=== PATIENT | female | born 1995 | race Caucasian/White ===

== ENCOUNTER 2016-11-19 00:45 | Emergency (ER) | payer SELFPAY ==
[~2016-11-19] VITALS: Ht 172.7 cm; Wt 61.2 kg
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
--- NOTE | 2016-11-19 01:02 | NUR ---
Dr. Don at bedside for further eval.
[2016-11-19] MEDS ORDERED: IV NS 0.9% 1,000 ML ONE (01:06)
[2016-11-19] MEDS ORDERED: IV SET PRIMARY 1 EA INFUS.SET MC ONE (01:06)
[2016-11-19] MEDS ORDERED: ONDANSETRON HCL/PF 4 MG/2 ML VIAL ONE (01:06)
[2016-11-19] MEDS ORDERED: MORPHINE SULFATE INJ 4 MG/ML DISP.SYRIN ONE (01:06)
--- NOTE | 2016-11-19 01:08 | NUR ---
[employer] at bedside talking w/ pt.
--- NOTE | 2016-11-19 01:12 | NUR ---
ambulatory w/ steady gait to restroom. Urine obtained & sent. IVHL started, labs drawn & sent. medicated as ordered for continued RUQ abd pain w/ rt knee pain. On continuous monitoring.
[2016-11-19 01:26] LABS: BASOPHILS % (AUTO) 0.3 % (0.0-2.0); EOSINOPHILS # (AUTO) 0.2 /CMM (0.0-0.7); EOSINOPHILS % (AUTO) 1.4 % (0.0-6.0); HEMATOCRIT 38 % (33-45); HEMOGLOBIN 12.7 g/dL (11.5-14.8); LYMPHOCYTES # (AUTO) 2.9 /CMM (0.8-4.8); LYMPHOCYTES % (AUTO) 21.7 % (20.0-44.0); MEAN CORPUSCULAR HEMOGLOBIN 30 PG (26.0-33.0); MEAN CORPUSCULAR HGB CONC 34 g/dl (31.0-36.0); MEAN CORPUSCULAR VOLUME 88 fL (82-100); MONOCYTES # (AUTO) 0.7 /CMM (0.1-1.30); MONOCYTES % (AUTO) 5.3 % (2.0-12.0); NEUTROPHILS # (AUTO) 9.7 /CMM (1.8-8.9); NEUTROPHILS % (AUTO) 71.3 % (43.0-81.0); PLATELET COUNT (AUTO) 371 /CMM (150-450); RDW COEFFICIENT OF VARIATION 12.7 (11.5-15.0); WHITE BLOOD COUNT (AUTO) 13.6 K/uL (4.3-11.0)
[2016-11-19 01:28] LABS: BILIRUBIN,URINE NEGATIVE (NEGATIVE); BLOOD, URINE TRACE Ery/uL (NEGATIVE); COLOR,URINE YELLOW (YELLOW); KETONES,URINE NEGATIVE (NEGATIVE); LEUKOCYTE ESTERASE ,URINE NEGATIVE (NEGATIVE); NITRITE, URINE NEGATIVE (NEGATIVE); PROTEIN,URINE NEGATIVE (NEGATIVE); UGLUCOSE NEGATIVE (NEGATIVE); UROBILINOGEN,URINE 0.2 EU/dL (0.2)
[2016-11-19] MEDS ORDERED: IV NS 0.9% 1,000 ML BAG IV ONE (01:30)
[2016-11-19] MEDS ORDERED: MORPHINE SULFATE INJ 2 MG/ML DISP.SYRIN IV ONE ×2 (01:30→03:00)
[2016-11-19] MEDS ORDERED: ONDANSETRON HCL/PF 4 MG/2 ML VIAL IVP ONE (01:30)
[2016-11-19 01:31] LABS: APPEARANCE,URINE CLEAR (CLEAR)
[2016-11-19 01:37] LABS: ADD URINE CULTURE NO; BACTERIA,URINE None seen /HPF (None Seen); SQUAMOUS EPITHELIAL CELL,UR Moderate /HPF (None Seen); WBC,URINE 0-2 /HPF (0-3)
[2016-11-19 01:37] LABS: CALCIUM, SERUM 9.3 mg/dL (8.5-10.1); CREATININE 0.9 mg/dL (0.6-1.3); POTASSIUM 3.7 mmol/L (3.5-5.1)
[2016-11-19 01:38] LABS: MUCUS,URINE Rare /LPF (None Seen)
[2016-11-19 01:39] LABS: INR 0.92 (0.87-1.13); PROTHROMBIN TIME 9.8 SECS (9.5-12.7)
[2016-11-19 01:42] LABS: ALBUMIN 4.4 g/dL (3.4-5.0); BILIRUBIN,DIRECT 0.1 mg/dL (0.0-0.2); BILIRUBIN,TOTAL 0.3 mg/dL (0.2-1.0); TOTAL PROTEIN, SERUM 8.2 g/dL (6.4-8.2)
[2016-11-19] MEDS ORDERED: IOHEXOL-300 100 ML VIAL IV ONE (01:49)
[2016-11-19] MEDS ORDERED: IV NS 0.9% 250 ML IV ONE (01:49)
--- NOTE | 2016-11-19 01:51 | NUR ---
Sent to CT.
--- NOTE | 2016-11-19 02:19 | NUR ---
pt back fr CT, ambulatory w/ steady gait to restroom, nad noted.
--- NOTE | 2016-11-19 02:52 | NUR ---
pt continues to have RUQ abd pain w/ bilateral knee pain, requesting for pain medications. Dr. Don notified.
[2016-11-19] MEDS ORDERED: MORPHINE SULFATE INJ 2 MG/ML DISP.SYRIN ONE (02:56)
--- NOTE | 2016-11-19 03:07 | NUR ---
pt medicated as ordered. Dr. Don at bedside for update on pt status.
--- NOTE | 2016-11-19 03:47 | NUR ---
Pt report feeling better, pain partially relieved w/ medication, resp even & unlabored, denies any sob w/ nad noted, talking on phone. IV removed. Catheter intact and site benign. Pressure and 4x4 applied to site. No bleeding noted.Patient discharged to home in stable condition. Written and verbal after care instructions given. Patient verbalizes understanding of instruction.
[2016-11-19 03:49] VITALS: BP 132/98
== END 2016-11-19 03:50 | disposition home or self-care (01) ==
LOC: ER 00:47
DX: S20.211A Contusion of right front wall of thorax, initial encounter (principal); R10.10 Upper abdominal pain, unspecified; M25.561 Pain in right knee; M25.562 Pain in left knee; V43.52XA Car driver injured in collision with other type car in traffic accident, initial encounter; Y93.89 Activity, other specified; Y92.413 State road as the place of occurrence of the external cause; Y99.9 Unspecified external cause status
CPT/HCPCS: 36415; 71010; 73564 ×2; 74160; 80048; 80076; 81001; 83690; 84703; 85025; 85730; 96361; 96374; 96375; 96376; 99285; A4606; J2270 ×2; J2405; J7030; J7050; Q9967; Z7610; 81000-TC